=== PATIENT | female | born 1960 | race Asian ===

== ENCOUNTER → 2017-07-27 | Outpatient (CLI) | payer OTHER ==
--- NOTE | 2017-07-27 15:49 | Diagnostic Imaging Report ---
PROCEDURE:US RETROPERITONEAL ( KIDNEY ). COMPARISON:None. INDICATIONS:UTI TECHNIQUE: Zambrano-scale and color sonographic images of the bilateral kidneys and bladder where obtained in transverse and longitudinal planes. FINDINGS: RIGHT KIDNEY: 10.3 x 4.4 x 5.4 cm, cortex 1.6 cm Cysts: No Solid masses: 2.2 x 1.7 x 2.2 cm from the hyperechoic lesion in the lateral interpolar region, consistent with angiomyolipoma. Stones: None Hydronephrosis: None Echogenicity: Normal LEFT KIDNEY: 10.4 x 5.4 x 5.4 cm, cortex 2.1 cm Cysts: None Solid masses: None Stones: None Hydronephrosis: None Echogenicity: Normal Bladder: Decompressed CONCLUSION: 2.2 cm uniform echogenic mass in the right kidney consistent with angiomyolipoma. Dictated by: Raymond Hoang M.D. on 07/27/2017 at 15:48 Electronically approved by: Raymond Hoang M.D. on 07/27/2017 at 15:48
== END ==
LOC: US 13:37
PROVIDERS: ATTEND Internal Medicine
DX: N93.0 Postcoital and contact bleeding (principal)
CPT/HCPCS: 76770

== ENCOUNTER → 2017-08-04 | Outpatient (CLI) | payer OTHER | LOC: MAMMO 08:56 | PROVIDERS: ATTEND Internal Medicine | DX: Z12.31 Encounter for screening mammogram for malignant neoplasm of breast (principal) | CPT/HCPCS: 77067 ==

== ENCOUNTER → 2017-08-28 | Outpatient (CLI) | payer OTHER ==
--- NOTE | 2017-08-28 11:28 | Diagnostic Imaging Report ---
PROCEDURE:X-RAY UNILATERAL RIBS WITH CHEST X-RAY COMPARISON:None. INDICATIONS:LEFT LOWER RIB PAIN FINDINGS: 3 views of the left-sided ribs (AP and bilateral obliques) and one additional PA view of the chest. Streaky opacities in the lung bases may represent bi-basilar atelectasis. No acute displaced left-sided rib fracture CONCLUSION: No acute displaced left-sided rib fracture. Dictated by: Alberto Tavera M.D. on 08/28/2017 at 11:29 Electronically approved by: Alberto Tavera M.D. on 08/28/2017 at 11:29
--- NOTE | 2017-08-28 16:00 | Diagnostic Imaging Report ---
#[id number] - [id number] #UNILATERAL LEFT DIGITAL DIAGNOSTIC MAMMOGRAM WITH SPOT COMPRESSION AND MAGNIFICATION: 08/28/2017 Comparison is made to exam dated: 08/04/2017 mammogram - [facility]. There are scattered fibroglandular elements in the left breast. Magnification spot images of the left breast heterogenous calcification demonstrate benign characteristics. However, since the study dated 08/04/2017 represents this patient's first mammogram then a follow up left breast mammogram in 6 months is recommended to ascertain stability. IMPRESSION: PROBABLY BENIGN A follow-up mammogram in 6 months is recommended to demonstrate stability. The patient's son was notified of these findings and the need for followup. David Ye Jr., D.O. cw/:08/28/2017 14:08:30 [place] Operator: Shital SONG)(M), [facility] letter sent: Followup Recommended Mammogram BI-RADS: 3 Probably benign
== END ==
LOC: MAMMO 08:34
PROVIDERS: ATTEND Internal Medicine
DX: N64.59 Other signs and symptoms in breast (principal); M89.9 Disorder of bone, unspecified
CPT/HCPCS: 71101